=== PATIENT | male | born 1960 | race African-American/Black ===

== ENCOUNTER 2017-06-27 13:36 | Emergency (ER) | payer SELFPAY ==
[~2017-06-27] VITALS: Ht 180.3 cm; Wt 77.0 kg
[2017-06-27] MEDS ORDERED: MECLIZINE 25MG TABLET PO ONE (17:15)
[2017-06-27 20:15] VITALS: BP 149/73
== END 2017-06-27 21:28 | disposition home or self-care (01) ==
LOC: ER 13:46
DX: H81.10 Benign paroxysmal vertigo, unspecified ear (principal)
CPT/HCPCS: 99283; J8597